=== PATIENT | female | born 1985 | race Asian ===

== ENCOUNTER → 2021-08-15 | Outpatient (CLI) | payer MEDICAID, OTHER ==
--- NOTE | 2021-08-16 04:07 | RAD ---
EXAM: ULTRASOUND PELVIS INDICATION: suprapubic pain. Last menstrual period was 08/04/2021. COMPARISON: None available. TECHNIQUE: Transabdominal sonography was performed. FINDINGS: The uterus is retroflexed and measures 7.0 x 6.4 x 5.0 cm. The endometrium measures 1.1 cm. There is no focal myometrial abnormality. IUD in place. The right ovary measures 3.4 x 1.9 x 1.9 cm. Normal vascularity The left ovary measures 3.1 x 1.8 x 1.9 cm. Normal vascularity There is no free fluid. IMPRESSION: 1. Physiologic appearance of the uterus and ovaries. 2. IUD in place. Electronically signed by: Edison Bhatia MD (08/16/2021 4:04 AM) [facility]
== END ==
LOC: US 15:13
PROVIDERS: ATTEND Obstetrics & Gynecology
DX: N85.4 Malposition of uterus (principal); Z97.5 Presence of (intrauterine) contraceptive device
CPT/HCPCS: 76856